=== PATIENT | female | born 1960 | race Caucasian/White ===

== ENCOUNTER 2018-10-28 11:26 | Inpatient (IN) | payer MEDICARE, OTHER ==
[2018-10-28] MEDS ORDERED: SODIUM CHLORIDE 0.9% 1,000 ML with MVI, ADULT NO.4 WITH VIT K 10 ML, THIAMINE 100 MG, F... IV ONE ×4 (11:48)
[2018-10-28] MEDS ORDERED: SODIUM CHLORIDE 0.9% 1,000 ML IV ONE (11:48)
--- NOTE | 2018-10-28 12:03 | ED ---
General Adult HPI - General Chief complaint: Alcohol Stated complaint: Alcohol Time Seen by Provider: 10/28/18 11:30 Source: EMS, RN notes reviewed Mode of arrival: EMS - History of Present Illness Initial comments: This is a 58-year-old female who presents emergency Department intoxicated. Patient states her and her boyfriend were both drinking heavily went to [facility] to go through rehab however they drove there are intoxicated and [facility] sent him to the emergency department because he could not get a ride home and they could not admit him. Patient denies any complaints currently she denies headache she denies lightheadedness denies any chest pain difficulty breathing shortness of breath. Patient denies abdominal pain patient denies nausea vomiting diarrhea per patient denies any drug use. Patient states she drank heavily this morning and they just wanted go through rehabilitation. Patient denies any trauma. Patient doesn't really want to be here should rather be in rehab. - Related Data Home Medications Medication Instructions Recorded Confirmed Albuterol Inhaler [Ventolin Hfa 1 - 2 puff INHALATION RT-Q6H PRN 10/28/18 10/28/18 Inhaler] Alendronate Sodium [Fosamax] 70 mg PO Q7D 10/28/18 10/28/18 Buprenorphine HCl/Naloxone HCl 1 film SL BID 10/28/18 10/28/18 [Suboxone 8 mg-2 mg Sl Film] Diazepam [Valium] 5 mg PO QID PRN 10/28/18 10/28/18 Gabapentin [Neurontin] 300 mg PO BID 10/28/18 10/28/18 LORazepam [Ativan] 1 mg PO QID PRN 10/28/18 10/28/18 Allergies Allergy/AdvReac Type Severity Reaction Status Date / Time No Known Allergies Allergy Verified 10/28/18 12:49 Review of Systems ROS Statement: Those systems with pertinent positive or pertinent negative responses have been documented in the HPI. ROS Other: All systems not noted in ROS Statement are negative. Past Medical History Past Medical History: COPD History of Any Multi-Drug Resistant Organisms: None Reported Past Psychological History: Bipolar Smoking Status: Current every day smoker Past Alcohol Use History: Abuse General Exam - General Exam Comments Initial Comments: GENERAL: Patient is well-developed and well-nourished. Patient is nontoxic and well- hydrated and appears significantly intoxicated ENT: Neck is soft and supple. No significant lymphadenopathy is noted. Oropharynx is clear. Moist mucous membranes. EYES: The sclera were anicteric and conjunctiva were pink and moist. Extraocular movements were intact and pupils were equal round and reactive to light. Eyelids were unremarkable. PULMONARY: Unlabored respirations. Good breath sounds bilaterally. No audible rales rhonchi or wheezing was noted. CARDIOVASCULAR: There is a regular rate and rhythm without any murmurs gallops or rubs. ABDOMEN: Soft and nontender with normal bowel sounds. SKIN: Skin is clear with no lesions or rashes and otherwise unremarkable. NEUROLOGIC: Patient is alert and oriented x3. Cranial nerves II through XII are grossly intact. Motor and sensory are also intact. Normal speech, volume and content. Symmetrical smile. MUSCULOSKELETAL: Normal extremities with adequate strength and full range of motion. LYMPHATICS: No significant lymphadenopathy is noted PSYCHIATRIC: Normal psychiatric evaluation. Course Vital Signs 10/28/18 11:28 Temperature 97.6 F Pulse Rate 100 Respiratory 18 Rate Blood Pressure 107/79 O2 Sat by Pulse 92 L Oximetry Medical Decision Making - Medical Decision Making I spoke with Dr. Arnett he agreed to admit the patient admitted the patient wrote admitting orders. - Lab Data Result diagrams: 10/28/18 12:03 10/28/18 12:03 Lab Results 10/28/18 10/28/18 10/28/18 Range/Units 12:03 12:03 12:03 WBC 7.7 (3.8-10.6) k/uL RBC 5.01 (3.80-5.40) m/uL Hgb 12.3 (11.4-16.0) gm/dL Hct 39.0 (34.0-46.0) % MCV 77.9 L (80.0-100.0) fL MCH 24.5 L (25.0-35.0) pg MCHC 31.4 (31.0-37.0) g/dL RDW 17.0 H (11.5-15.5) % Plt Count 508 H (150-450) k/uL Neutrophils % 53 % Lymphocytes % 37 % Monocytes % 4 % Eosinophils % 3 % Basophils % 1 % Neutrophils # 4.1 (1.3-7.7) k/uL Lymphocytes # 2.8 (1.0-4.8) k/uL Monocytes # 0.3 (0-1.0) k/uL Eosinophils # 0.2 (0-0.7) k/uL Basophils # 0.1 (0-0.2) k/uL Hypochromasia Moderate Anisocytosis Slight Microcytosis Slight PT 9.9 (9.0-12.0) sec INR 0.9 (<1.2) APTT 25.0 (22.0-30.0) sec Sodium 145 (137-145) mmol/L Potassium 4.5 (3.5-5.1) mmol/L Chloride 108 H (98-107) mmol/L Carbon Dioxide 26 (22-30) mmol/L Anion Gap 11 mmol/L BUN 3 L (7-17) mg/dL Creatinine 0.39 L (0.52-1.04) mg/dL Est GFR (CKD-EPI)AfAm >90 (>60 ml/min/1.73 sqM) Est GFR (CKD-EPI)NonAf >90 (>60 ml/min/1.73 sqM) Glucose 96 (74-99) mg/dL Calcium 9.1 (8.4-10.2) mg/dL Magnesium 2.1 (1.6-2.3) mg/dL Total Bilirubin 0.2 (0.2-1.3) mg/dL AST 37 H (14-36) U/L ALT 30 (9-52) U/L Alkaline Phosphatase 145 H (38-126) U/L Total Protein 8.4 H (6.3-8.2) g/dL Albumin 4.2 (3.5-5.0) g/dL Serum Alcohol 285 H* mg/dL Disposition Clinical Impression: Alcoholic intoxication Disposition: ADMITTED IP TO THIS HOSP Referrals: Elvis Castillo DO [Primary Care Provider] - 1-2 days Time of Disposition: 14:48
[2018-10-28 12:36] LABS: Anisocytosis Slight; Basophils # (A) 0.1 k/uL (0-0.2); Basophils % (A) 1 %; Eosinophils # (A) 0.2 k/uL (0-0.7); Eosinophils % (A) 3 %; HGB 12.3 gm/dL (11.4-16.0); Hypochromasia Moderate; Lymphocytes # (A) 2.8 k/uL (1.0-4.8); Lymphocytes % (A) 37 %; MCH 24.5 pg (25.0-35.0); MCHC 31.4 g/dL (31.0-37.0); MCV 77.9 fL (80.0-100.0); Mean Platelet Volume 6.6; Microcytosis Slight; Monocytes # (A) 0.3 k/uL (0-1.0); Monocytes % (A) 4 %; Neutrophils # (A) 4.1 k/uL (1.3-7.7); Neutrophils % (A) 53 %; Platelet Count 508 k/uL (150-450); RBC 5.01 m/uL (3.80-5.40); WBC 7.7 k/uL (3.8-10.6)
[2018-10-28 12:40] LABS: INR 0.9 (<1.2); Prothrombin Time 9.9 sec (9.0-12.0)
[2018-10-28 12:47] LABS: ALT 30 U/L (9-52); AST 37 U/L (14-36); African American GFR (CKD) >90 (>60 ml/min/1.73 sqM); Albumin 4.2 g/dL (3.5-5.0); Alkaline Phosphatase 145 U/L (38-126); Anion Gap 11 mmol/L; Blood Urea Nitrogen 3 mg/dL (7-17); Calcium 9.1 mg/dL (8.4-10.2); Carbon Dioxide 26 mmol/L (22-30); Chloride 108 mmol/L (98-107); Glucose 96 mg/dL (74-99); Magnesium 2.1 mg/dL (1.6-2.3); Potassium 4.5 mmol/L (3.5-5.1); Sodium 145 mmol/L (137-145); Total Bilirubin 0.2 mg/dL (0.2-1.3); Total Protein 8.4 g/dL (6.3-8.2)
[2018-10-28 13:01] LABS: Alcohol 285 mg/dL
[2018-10-28] MEDS ORDERED: LORazepam 2 MG/ML INJ IV PRN (14:50)
[2018-10-28] MEDS ORDERED: THIAMINE 100 MG/ML 2 ML VIAL IM STA (14:50)
[2018-10-28] MEDS: LORazepam 2 MG/ML INJ IV PRN ×3 (16:15→22:51)
[2018-10-28] MEDS ORDERED: TEMAZEPAM 15 MG CAP PO PRN (16:27)
[2018-10-28] MEDS ORDERED: ALPRAZolam 0.25 MG TAB PO PRN (16:27)
[2018-10-28] MEDS ORDERED: HYDROcodone/APAP 5-325MG 1 EACH TAB PO PRN (16:27)
--- NOTE | 2018-10-28 16:49 | XR ---
EXAMINATION TYPE: XR chest 1V portable DATE OF EXAM: 10/28/2018 COMPARISON: NONE HISTORY: Intoxication. Short of breath TECHNIQUE: Single frontal view of the chest is obtained. FINDINGS: There is general coarse interstitial pulmonary density. Heart size is normal. There is sli ght blunting of the right costophrenic angle. Bony thorax appears intact. IMPRESSION: Pulmonary interstitial fibrosis. Acute interstitial pneumonia is possible. No heart fail ure.
[2018-10-28] MEDS ORDERED: IPRATROPIUM-ALBUTEROL 3 ML NEB INHALATION PRN (18:55)
[2018-10-28] MEDS ORDERED: FUROSEMIDE 10 MG/ML 4 ML VIAL IV STA (18:56)
[2018-10-28 19:13] LABS: Appearance,Urine Cloudy (Clear); Bacteria,Urine Occasional /hpf; Bilirubin,Urine Negative (Negative); Blood,Urine Negative (Negative); Color,Urine Light Yellow; Glucose,Urine (UA) Negative (Negative); Ketones,Urine Negative (Negative); Leukocyte Esterase,Urine Negative (Negative); Mucus,Urine Rare /hpf; Nitrite,Urine Negative (Negative); PH, Urine 5.5 (5.0-8.0); Protein,Urine Negative (Negative); Specific Gravity,Urine 1.009 (1.001-1.035); Squamous Epithelial Cell,Urine 4 /hpf (0-4); Urobilinogen,Urine <2.0 mg/dL (<2.0); WBC,Urine 1 /hpf (0-5)
[2018-10-28] MEDS ORDERED: ONDANSETRON 4 MG/2 ML VIAL IVP PRN (19:18)
[2018-10-28] MEDS ORDERED: AZITHROMYCIN 500 MG in SODIUM CHLORIDE 0.9% 250 ML IVPB SCH (19:30)
[2018-10-28] MEDS: 0.9% NACL WITH KCL 20 MEQ/L 1,000 ML with MVI, ADULT NO.4 WITH VIT K 10 ML, THIAMINE 10... IV SCH ×4 (19:42)
[2018-10-28] MEDS: THIAMINE 100 MG TAB PO SCH (19:58)
[2018-10-28] MEDS: methylPREDNISolone SOD SUCCI 125 MG/2 ML VIAL IV SCH (20:54)
[2018-10-28] MEDS: NICOTINE 14MG/24HR PATCH TRANSDERM SCH (20:55)
--- NOTE | 2018-10-28 20:55 | HP ---
HISTORY AND PHYSICAL DATE OF SERVICE: 10/28/2018 CHIEF COMPLAINT: Alcohol intoxication. HISTORY OF PRESENT ILLNESS: This 58-year-old woman with a past medical history of multiple medical problems, including COPD, history of bipolar, being followed by Dr. Elvis Castillo in the outpatient setting, apparently drove with her friend to [facility] in the belief that they would be able to be admitted; however, [facility] declined and the patient was taken to [facility] and admitted for further evaluation and treatment. Alcohol level was found to be 285. The patient had significant shortness of breath which was increasing in intensity. Patient was admitted for further evaluation. There is no history of any fever, rigor or chills. No history of headache, loss of consciousness, seizures. PAST MEDICAL HISTORY: 1. History of COPD. 2. History of bipolar. 3. Nicotine dependence. MEDICATIONS: Medications prior to admission include: 1. Ativan 1 mg q.i.d. p.r.n. 2. Neurontin 300 mg p.o. b.i.d. 3. Valium 5 mg q.i.d. p.r.n. 4. Suboxone 8 mg b.i.d. 5. Fosamax 70 mg q.7 days. 6. Ventolin HFA 1-2 puffs q.6 p.r.n. ALLERGIES: NONE. FAMILY HISTORY: No history of heart disease or strokes in the family. SOCIAL HISTORY: History of smoking and alcohol abuse. REVIEW OF SYSTEMS: ENT: No diminished hearing. No diminished vision. CARDIOVASCULAR SYSTEM: No angina, palpitations. RESPIRATORY SYSTEM: As mentioned earlier. GI: No nausea, vomiting. : No dysuria or retention. NERVOUS SYSTEM: Some tremors present. ALLERGY/IMMUNOLOGY: No asthma, hayfever. MUSCULOSKELETAL: As mentioned earlier. HEMATOLOGY/ONCOLOGY: No history of anemia. ENDOCRINE: No history of diabetes, hypothyroidism. CONSTITUTIONAL: As mentioned earlier. DERMATOLOGY: Negative. RHEUMATOLOGY: Negative. PSYCHIATRY: As mentioned earlier. PHYSICAL EXAMINATION: Patient alert and oriented x3. Pulse 112, regular. Blood pressure 119/74, respiration 20, temperature 97.6, pulse ox 92% on room air. HEENT: Conjunctivae normal. Oral mucosa moist. NECK: No jugular venous distention. No carotid bruit. No lymph node enlargement. CARDIOVASCULAR SYSTEM: S1, S2 muffled. No S3. No S4. RESPIRATORY SYSTEM: Breath sounds diminished at the bases. Bilateral scattered rhonchi and crackles. Expiratory wheezing also present, but breathing efforts are markedly increased. ABDOMEN: Soft, non-tender. No mass palpable. LEGS: No edema. No swelling. NERVOUS SYSTEM: Higher functions as mentioned earlier. Moves all 4 limbs. No focal motor or sensory deficit. LYMPHATICS: No lymph node palpable in neck, axillae or groin. SKIN: No ulcer, rash, bleeding. JOINTS: No active deforming arthropathy. LABS: Labs at this time show WBC 7.7, hemoglobin 12.3, platelets 508 and creatinine 0.39. Alkaline phosphatase is 145. AST is 37. ASSESSMENT: 1. Acute alcohol intoxication. 2. Possible interstitial pneumonia. 3. Chronic obstructive pulmonary disease, acute exacerbation, with acute purulent tracheobronchitis. 4. Sinus tachycardia secondary to delirium tremens. 5. Acute delirium tremens and alcohol withdrawal. 6. Increased AST; possible mild hepatitis secondary to alcohol. 7. History of chronic obstructive pulmonary disease. 8. History of bipolar. 9. History of continued and ongoing nicotine dependence. 10.History of ethanol. RECOMMENDATIONS AND DISCUSSION: In this 58-year-old woman who presented with multiple complex medical issues, we will monitor the patient closely. I would recommend continuing with current medications. Chest x-ray was done in the ER which I reviewed personally; it showed bilateral infiltrates, possible interstitial pneumonia. I would recommend stopping the IV fluids. I would also recommend broad-spectrum IV antibiotics. Social Work will be consulted as well as Case Management to coordinate discharge to [facility] once the patient is clinically better. However, currently the prognosis is extremely guarded because of multiple life-threatening complex medical issues, as listed above. Further recommendations to follow. MMODL / IJN: [id number] /
[2018-10-28] MEDS: IPRATROPIUM-ALBUTEROL 3 ML NEB INHALATION SCH (21:34)
[2018-10-28] MEDS: BUDESONIDE 1 MG/2 ML NEBU INHALATION SCH (21:34)
[2018-10-28] MEDS: FORMOTEROL FUMARATE 20 MCG/2 ML NEBU INHALATION SCH (21:35)
[2018-10-28 21:39] LABS: Amphetamine Screen,Urine Not Detected (NotDetected); Barbiturate Screen,Urine Not Detected (NotDetected); Benzodiazepines Screen,Urine Detected (NotDetected); Cocaine Screen,Urine Not Detected (NotDetected); Methadone Screen, Urine Not Detected (NotDetected); Opiate Screen,Urine Not Detected (NotDetected); Oxycodone Screen, Urine Not Detected (NotDetected); Phencyclidine Screen,Urine Not Detected (NotDetected); Tricyclic Antidepressant,Urine Not Detected (NotDetected); Urn Cannabinoid Scrn Not Detected (NotDetected)
[2018-10-28 22:28] LABS: Glucose,Whole Blood 131 mg/dL (75-99)
[2018-10-28] MEDS: INSULIN ASPART (NovoLOG) 100 UNIT/ML VIAL SQ SCH (22:45)
[2018-10-28] MEDS: GABAPENTIN 300 MG CAP PO SCH (22:50)
[2018-10-28] MEDS: HEPARIN SODIUM,PORCINE 5,000 UNIT/ML 1 ML VIAL SQ SCH (22:50)
[2018-10-29] MEDS: methylPREDNISolone SOD SUCCI 125 MG/2 ML VIAL IV SCH ×4 (00:45→18:17)
[2018-10-29] MEDS: 0.9% NACL WITH KCL 20 MEQ/L 1,000 ML with MVI, ADULT NO.4 WITH VIT K 10 ML, THIAMINE 10... IV SCH ×4 (00:46)
[2018-10-29 06:57] LABS: Glucose,Whole Blood 154 mg/dL (75-99)
[2018-10-29 07:15] LABS: Anisocytosis Slight; Basophils % (A) 0 %; Eosinophils # (A) 0.1 k/uL (0-0.7); Eosinophils % (A) 1 %; HCT 37.9 % (34.0-46.0); HGB 11.8 gm/dL (11.4-16.0); Hypochromasia Moderate; Lymphocytes # (A) 0.9 k/uL (1.0-4.8); Lymphocytes % (A) 12 %; MCH 24.6 pg (25.0-35.0); MCHC 31.1 g/dL (31.0-37.0); MCV 79.1 fL (80.0-100.0); Mean Platelet Volume 6.7; Monocytes # (A) 0.1 k/uL (0-1.0); Monocytes % (A) 1 %; Neutrophils # (A) 6.6 k/uL (1.3-7.7); Neutrophils % (A) 86 %; Platelet Count 506 k/uL (150-450); RBC 4.79 m/uL (3.80-5.40); RDW 16.7 % (11.5-15.5); WBC 7.7 k/uL (3.8-10.6)
[2018-10-29 07:33] LABS: African American GFR (CKD) >90 (>60 ml/min/1.73 sqM); Anion Gap 10 mmol/L; Blood Urea Nitrogen 7 mg/dL (7-17); Calcium 8.3 mg/dL (8.4-10.2); Carbon Dioxide 30 mmol/L (22-30); Chloride 100 mmol/L (98-107); Glucose 149 mg/dL (74-99); Potassium 4.6 mmol/L (3.5-5.1); Sodium 140 mmol/L (137-145)
[2018-10-29] MEDS: INSULIN ASPART (NovoLOG) 100 UNIT/ML VIAL SQ SCH ×4 (08:00→22:19)
[2018-10-29] MEDS: THIAMINE 100 MG TAB PO SCH ×2 (08:01→18:18)
[2018-10-29] MEDS: GABAPENTIN 300 MG CAP PO SCH ×2 (08:01→22:19)
[2018-10-29] MEDS: PANTOPRAZOLE 40 MG TABLET PO SCH (08:02)
[2018-10-29] MEDS: LORazepam 2 MG/ML INJ IV PRN ×3 (08:02→22:20)
[2018-10-29] MEDS: HEPARIN SODIUM,PORCINE 5,000 UNIT/ML 1 ML VIAL SQ SCH ×2 (08:02→22:19)
[2018-10-29] MEDS: NICOTINE 14MG/24HR PATCH TRANSDERM SCH (08:09)
--- NOTE | 2018-10-29 08:23 | XR ---
EXAMINATION TYPE: XR chest 1V portable DATE OF EXAM: 10/29/2018 COMPARISON: 10/28/2018 HISTORY: Pneumonia TECHNIQUE: Single frontal view of the chest is obtained. FINDINGS: Persistent interstitial changes are seen. Chronic rib cage deformities are seen with no pl eural effusion or pneumothorax. Biapical pleural thickening. Heart size normal. IMPRESSION: Persistent interstitial changes suggestive of chronic interstitial pulmonary fibrosis. S uperimposed congestion or pneumonitis not excluded.
[2018-10-29] MEDS: FORMOTEROL FUMARATE 20 MCG/2 ML NEBU INHALATION SCH ×2 (08:38→18:56)
[2018-10-29] MEDS: BUDESONIDE 1 MG/2 ML NEBU INHALATION SCH ×2 (08:38→18:56)
[2018-10-29] MEDS: IPRATROPIUM-ALBUTEROL 3 ML NEB INHALATION SCH ×4 (08:38→18:56)
[2018-10-29 11:42] LABS: Glucose,Whole Blood 136 mg/dL (75-99)
[2018-10-29] MEDS ORDERED: FUROSEMIDE 10 MG/ML 2 ML VIAL IV ONE (12:40)
--- NOTE | 2018-10-29 13:33 | P.CNPUL ---
History of Present Illness Consult date: 10/29/18 Requesting physician: Trery Cerrato Reason for consult: dyspnea Chief complaint: shortness of breath, wheezing History of present illness: This is 58-year-old white female patient who lives in [facility], has a history of heavy alcohol abuse, chronic nicotine dependence, presented to the em ergency department intoxicated. Apparently patient and her boyfriend were on their way to [facility] to be admitted, however they showed up there quite intoxicated and the [facility] rehab could not admit him and they were directed to the emergency department. Patient has been drinking since the age of 13, she states she drinks quite heavily, usually 2 pints of schnapps or vodka and beer, has history of alcohol withdrawal, with delirium tremens. Does have underlying history of COPD, not usually oxygen dependent, she is on a combination of Symbicort, and Ventolin. Her sleep department patient denied any headaches, lightheadedness, no chest pain, no fever or chills, no abdominal pain, no nausea vomiting or diarrhea. Urine drug screen detected benzodiazepines, and serum alcohol level was 285, she was started on COPD protocol for precaution of delirium tremens. Physical exam revealed significant wheezing. Chest x-ray showed pulmonary interstitial fibrosis, with the possibility of acute interstitial pneumonia. Clinically patient is nontoxic, no fever or chills, no leukocytosis. She has been started on a combination of Rocephin and Zithromax, nebulized bronchodilators, she was given a dose of IV Lasix and started on nebulized bronchodilators along with IV steroids. Today were seen this patient in consultation for acute COPD exacerbation, with changes of chronic fibrosis on the chest x-ray, doubt acute pneumonia, her BNP was within normal limits at 62. Review of Systems All systems: negative Constitutional: Denies chills, Denies fever Eyes: denies blurred vision, denies pain Ears, nose, mouth and throat: Denies headache, Denies sore throat Cardiovascular: Denies chest pain, Denies shortness of breath Respiratory: Reports wheezing, Denies cough Gastrointestinal: Denies abdominal pain, Denies diarrhea, Denies nausea, Denies vomiting Genitourinary: Denies dysuria, Denies hematuria Musculoskeletal: Denies myalgias Integumentary: Denies pruritus, Denies rash Neurological: Reports headaches, Denies numbness, Denies weakness Psychiatric: Denies anxiety, Denies depression Endocrine: Denies fatigue, Denies weight change Past Medical History Past Medical History: COPD History of Any Multi-Drug Resistant Organisms: None Reported Past Psychological History: Bipolar Smoking Status: Current every day smoker Past Alcohol Use History: Abuse Medications and Allergies Home Medications Medication Instructions Recorded Confirmed Type Albuterol Inhaler [Ventolin Hfa 1 - 2 puff INHALATION RT-Q6H PRN 10/28/18 10/28/18 History Inhaler] Alendronate Sodium [Fosamax] 70 mg PO Q7D 10/28/18 10/28/18 History Buprenorphine HCl/Naloxone HCl 1 film SL BID 10/28/18 10/28/18 History [Suboxone 8 mg-2 mg Sl Film] Diazepam [Valium] 5 mg PO QID PRN 10/28/18 10/28/18 History Gabapentin [Neurontin] 300 mg PO BID 10/28/18 10/28/18 History LORazepam [Ativan] 1 mg PO QID PRN 10/28/18 10/28/18 History Allergies Allergy/AdvReac Type Severity Reaction Status Date / Time No Known Allergies Allergy Verified 10/28/18 21:07 Physical Exam Vitals: Vital Signs Temp Pulse Pulse Resp BP BP Pulse Ox 10/29/18 11:40 109 H 10/29/18 11:39 108 H 10/29/18 09:01 106 H 10/29/18 08:49 104 H 10/29/18 08:48 104 H 10/29/18 08:38 104 H 10/29/18 07:00 98 F 106 H 16 119/78 95 10/29/18 04:05 100 10/29/18 00:59 98.6 F 110 H 16 127/85 94 L 10/29/18 00:00 115 H 16 10/28/18 21:54 121 H 10/28/18 21:48 123 H 10/28/18 21:37 94 L 10/28/18 21:36 123 H 10/28/18 21:00 98.5 F 126 H 20 138/81 90 L 10/28/18 20:40 126 H 10/28/18 17:25 99.0 F 112 H 22 110/73 92 L 10/28/18 16:10 112 H 20 119/74 92 L Intake and Output 10/28/18 10/29/18 10/29/18 22:59 06:59 14:59 Intake Total 1750 Balance 1750 Intake: Intake, IV Titration 1350 Amount 0.9% NaCl with KCl 20 Meq 250 /l 1,000 ml @ 40 mls/hr IV .Q24H ELVA with Mvi, Adult No.4 with Vit K 10 ml with Thiamine 100 mg with Folic Acid 1 mg Rx#: [id number] Azithromycin 500 mg In 250 Sodium Chloride 0.9% 250 ml @ 250 mls/hr IVPB DAILY@1800 ELVA Rx#: [id number] Sodium Chloride 0.9% 1, 800 000 ml @ 150 mls/hr IV . Q6H45M ONE with Mvi, Adult No.4 with Vit K 10 ml with Thiamine 100 mg with Folic Acid 1 mg Rx#: [id number] cefTRIAXone 1 gm In 50 Sodium Chloride 0.9% 50 ml @ 100 mls/hr IVPB Q24HR ELVA Rx#:[id number] Oral 400 Other: Voiding Method Toilet # Voids 1 4 GENERAL EXAM: Alert, very pleasant, 58-year-old white female patient, in no acute distress, audibly wheezy, comfortable in no apparent distress. Complaining of mild headache HEAD: Normocephalic/atraumatic. EYES: Normal reaction of pupils, equal size. Conjunctiva pink, sclera white. NOSE: Clear with pink turbinates. THROAT: No erythema or exudates. NECK: No masses, no JVD, no thyroid enlargement, no adenopathy. CHEST: No chest wall deformity. Symmetrical expansion. LUNGS: Equal air entry with no crackles, wheeze, rhonchi or dullness. CVS: Regular rate and rhythm, normal S1 and S2, no gallops, no murmurs, no rubs ABDOMEN: Soft, nontender. No hepatosplenomegaly, normal bowel sounds, no guarding or rigidity. EXTREMITIES: No clubbing, no edema, no cyanosis, 2+ pulses and upper and lower extremities. She has fine tremors in her hands MUSCULOSKELETAL: Muscle strength and tone normal. SPINE: No scoliosis or deformity SKIN: No rashes CENTRAL NERVOUS SYSTEM: Alert and oriented -3. No focal deficits, tone is normal in all 4 extremities. PSYCHIATRIC: Alert and oriented -3. Appropriate affect. Intact judgment and insight. Results - Laboratory Findings CBC and BMP: 10/29/18 06:32 10/29/18 06:32 PT/INR, D-dimer PT 9.9 sec (9.0-12.0) 10/28/18 12:03 INR 0.9 (<1.2) 10/28/18 12:03 Abnormal lab findings: Abnormal Labs 10/28/18 10/28/18 10/28/18 12:03 12:03 18:55 MCV 77.9 L MCH 24.5 L RDW 17.0 H Plt Count 508 H Lymphocytes # Chloride 108 H BUN 3 L Creatinine 0.39 L Glucose POC Glucose (mg/dL) Calcium AST 37 H Alkaline Phosphatase 145 H Total Protein 8.4 H Urine Appearance Cloudy H Urine Bacteria Occasional H Urine Mucus Rare H U Benzodiazepines Scrn Serum Alcohol 285 H* 10/28/18 10/28/18 10/29/18 19:19 22:26 06:32 MCV 79.1 L MCH 24.6 L RDW 16.7 H Plt Count 506 H Lymphocytes # 0.9 L Chloride BUN Creatinine Glucose POC Glucose (mg/dL) 131 H Calcium AST Alkaline Phosphatase Total Protein Urine Appearance Urine Bacteria Urine Mucus U Benzodiazepines Scrn Detected H Serum Alcohol 10/29/18 10/29/18 10/29/18 06:32 06:55 11:40 MCV MCH RDW Plt Count Lymphocytes # Chloride BUN Creatinine 0.47 L Glucose 149 H POC Glucose (mg/dL) 154 H 136 H Calcium 8.3 L AST Alkaline Phosphatase Total Protein Urine Appearance Urine Bacteria Urine Mucus U Benzodiazepines Scrn Serum Alcohol - Diagnostic Findings Chest x-ray: report reviewed, image reviewed Assessment and Plan Plan: Assessment: #1. Acute exacerbation of chronic obstructive pulmonary disease, chest x-ray showing interstitial pulmonary densities, likely related to pulmonary interstitial fibrosis, doubt pneumonia #2. Acute alcoholic intoxication, with signs of mild withdrawal, CIWA protocol #3. Chronic alcoholism #4. Chronic obstructive pulmonary disease, severity is unknown, not oxygen dependent at baseline #5. Bipolar disorder #6. Chronic and ongoing nicotine dependence, patient carries a [id number] smoking history Plan: Continue nebulized bronchodilators, chest x-rays have been reviewed, showing interstitial pulmonary densities, possibly chronic in nature, no clear evidence of pneumonia. Continue on antibiotics, continue IV steroids and bronchodilators. Continue CIWA protocol, monitor for signs of delirium tremens, continue aspiration precautions. We'll continue to follow I performed a history & physical examination of the patient and discussed their management with my nurse practitioner, Lizz Kimball. I reviewed the nurse practitioner's note and agree with the documented findings and plan of care. Lung sounds are positive for diffuse wheezes throughout the lung riley. The findings and the impression was discussed with the patient. I attest to the documentation by the nurse practitioner. Time with Patient: Greater than 30
[2018-10-29 17:16] LABS: Glucose,Whole Blood 144 mg/dL (75-99)
--- NOTE | 2018-10-29 20:36 | PN ---
PROGRESS NOTE DATE OF SERVICE: 10/29/2018 CHIEF COMPLAINT: Alcohol intoxication. This 58-year-old woman was admitted with alcohol intoxication as well as COPD acute exacerbation, being closely monitored at this time. The patient had some evidence of fluid overload yesterday, but currently the most recent chest x-ray has improved significantly. Patient being closely monitored at this time. Pulmonary consultation also has been noted. Blood sugars mildly elevated. The patient also has significant history of alcohol and alcohol intoxication and delirium tremens also. PAST MEDICAL HISTORY: Reviewed. REVIEW OF SYSTEMS: Cardiovascular system: No angina. RESPIRATORY: As mentioned earlier. GI no nausea and no vomiting, diarrhea. no dysuria. NERVOUS SYSTEM: No numbness or weakness. CURRENT MEDICATIONS: Reviewed and include: 1. Bernice 5 mg q.6h p.r.n. 2. DuoNeb q.i.d. and p.r.n. 3. Xanax 0.25 t.i.d. 4. Zithromax 500 mg q.h.s. 5. Pulmicort 1 mg b.i.d. 6. Rocephin 1 g daily. 7. Perforomist 20 mcg b.i.d. 8. Neurontin 300 mg p.o. b.i.d. 9. Heparin 5000 subcu b.i.d. 10.NovoLog scale. 11.Ativan. 12.Solu-Medrol 60 IV q.6h. 13.Habitrol 14 daily. 14.Protonix. 15.Restoril. 16.Vitamin B1. PHYSICAL EXAM: Patient is alert, oriented x3. Pulse 69. Blood pressure 119/78. Respiration 16, temperature 98.8, pulse ox 94% on 3 L. HEENT: Conjunctivae normal. NECK: No jugular venous distention. CARDIOVASCULAR: S1, S2 muffled. RESPIRATIONS: Breath sounds diminished in the bases. Bilateral scattered rhonchi and crackles. Expiratory wheezing also present. Patient is still short of breath. ABDOMEN: Soft, nontender. No mass palpable. LEGS: No edema. No swelling. NERVOUS SYSTEM: Mild diffuse weakness. SKIN: No ulcer, no rash. No bleeding. LABS: WBC 7.2, hemoglobin 11.2. Sodium 140, potassium 4.6. Other labs are noted. ASSESSMENT: 1. Acute alcohol intoxication. 2. Chronic obstructive pulmonary disease acute exacerbation with acute purulent tracheobronchitis, interstitial pneumonia. 3. Sinus tachycardia secondary to acute delirium tremens and alcohol withdrawal. 4. Increased AST. Possible acute mild hepatitis secondary to alcohol. 5. History of chronic obstructive pulmonary disease. 6. History of bipolar. 7. History of continued ongoing nicotine dependence. 8. History of EtOH. RECOMMENDATIONS AND DISCUSSION: This 58-year-old woman who presented with multiple complex medical issues, at this time, I recommend to continue current management and continue the bronchodilators. Continue with antibiotics. Otherwise, DVT prophylaxis. WA protocol. Closely follow with multiple consultants including pulmonology otherwise, banana bag and continue to monitor. Further recommendations to follow. MMODL / IJN: [id number] /
[2018-10-29] MEDS ORDERED: AZITHROMYCIN 500 MG TAB PO SCH (21:00)
[2018-10-29 21:49] LABS: Glucose,Whole Blood 144 mg/dL (75-99)
[2018-10-30 01:31] VITALS: RESP 14
[2018-10-30] MEDS: methylPREDNISolone SOD SUCCI 125 MG/2 ML VIAL IV SCH ×3 (01:44→12:21)
[2018-10-30] MEDS: IPRATROPIUM-ALBUTEROL 3 ML NEB INHALATION SCH ×2 (07:08→10:51)
[2018-10-30] MEDS: BUDESONIDE 1 MG/2 ML NEBU INHALATION SCH (07:08)
[2018-10-30] MEDS: FORMOTEROL FUMARATE 20 MCG/2 ML NEBU INHALATION SCH (07:09)
[2018-10-30 07:22] LABS: Glucose,Whole Blood 150 mg/dL (75-99)
[2018-10-30] MEDS: INSULIN ASPART (NovoLOG) 100 UNIT/ML VIAL SQ SCH ×2 (07:36→12:17)
[2018-10-30] MEDS: HEPARIN SODIUM,PORCINE 5,000 UNIT/ML 1 ML VIAL SQ SCH (07:36)
[2018-10-30] MEDS: NICOTINE 14MG/24HR PATCH TRANSDERM SCH (07:36)
[2018-10-30] MEDS: THIAMINE 100 MG TAB PO SCH (07:36)
[2018-10-30] MEDS: GABAPENTIN 300 MG CAP PO SCH (07:36)
[2018-10-30] MEDS: PANTOPRAZOLE 40 MG TABLET PO SCH (07:36)
[2018-10-30] MEDS: LORazepam 2 MG/ML INJ IV PRN ×2 (08:04→12:22)
[2018-10-30 08:11] VITALS: BP 119/72; TEMP 98.5
[2018-10-30 09:32] LABS: African American GFR (CKD) >90 (>60 ml/min/1.73 sqM); Anion Gap 11 mmol/L; Blood Urea Nitrogen 10 mg/dL (7-17); Calcium 8.6 mg/dL (8.4-10.2); Carbon Dioxide 24 mmol/L (22-30); Chloride 98 mmol/L (98-107); Glucose 220 mg/dL (74-99); Potassium 4.6 mmol/L (3.5-5.1); Sodium 133 mmol/L (137-145)
[2018-10-30 10:04] LABS: Anisocytosis Slight; Basophils % (A) 0 %; Eosinophils # (A) 0.1 k/uL (0-0.7); Eosinophils % (A) 2 %; HCT 34.6 % (34.0-46.0); HGB 10.7 gm/dL (11.4-16.0); Hypochromasia Moderate; Lymphocytes # (A) 0.6 k/uL (1.0-4.8); Lymphocytes % (A) 15 %; MCH 24.3 pg (25.0-35.0); MCHC 30.8 g/dL (31.0-37.0); MCV 78.7 fL (80.0-100.0); Mean Platelet Volume 7.6; Monocytes # (A) 0.1 k/uL (0-1.0); Monocytes % (A) 1 %; Neutrophils # (A) 3.2 k/uL (1.3-7.7); Neutrophils % (A) 82 %; Platelet Count 461 k/uL (150-450); RBC 4.39 m/uL (3.80-5.40); RDW 16.4 % (11.5-15.5)
[2018-10-30 11:11] VITALS: PULSE 96
[2018-10-30 12:01] LABS: Glucose,Whole Blood 132 mg/dL (75-99)
--- NOTE | 2018-10-30 12:14 | P.PN ---
Subjective Progress Note Date: 10/30/18 Principal diagnosis: Acute exacerbation of chronic obstructive pulmonary disease This is 58-year-old white female patient who lives in [facility], has a history of heavy alcohol abuse, chronic nicotine dependence, presented to the emergency department intoxicated. Apparently patient and her boyfriend were on their way to [facility] to be admitted, however they showed up there quite intoxicated and the [facility] could not admit him and they were directed to the emergency department. Patient has been drinking since the age of 13, she states she drinks quite heavily, usually 2 pints of schnapps or vodka and beer, has history of alcohol withdrawal, with delirium tremens. Does have underlying history of COPD, not usually oxygen dependent, she is on a co mbination of Symbicort, and Ventolin. Her sleep department patient denied any headaches, lightheadedness, no chest pain, no fever or chills, no abdominal pain, no nausea vomiting or diarrhea. Urine drug screen detected benzodiazepines, and serum alcohol level was 285, she was started on COPD omid col for precaution of delirium tremens. Physical exam revealed significant wheezing. Chest x-ray showed pulmonary interstitial fibrosis, with the possibility of acute interstitial pneumonia. Clinically patient is nontoxic, no fever or chills, no leukocytosis. She has been started on a combination of Rocephin and Zithromax, nebulized bronchodilators, she was given a dose of IV Lasix and started on nebulized bronchodilators along with IV steroids. Today were seen this patient in consultation for acute COPD exacerbation, with changes of chronic fibrosis on the chest x-ray, doubt acute pneumonia, her BNP was within normal limits at 62. The patient is seen today 10/30/2018 in follow-up on the regular medical floor. She is awake and alert in no acute distress. Breathing easier today as compared to yesterday. Maintaining O2 saturations in the low 90s on room air. She is a loose nonproductive cough. No chills or night sweats. She's afebrile. White count 4.0. Hemoglobin 10.7. Creatinine 0.46. He has been maintained on ceftriaxone, azithromycin, DuoNeb's, Pulmicort and Perforomist inhalations, IV Solu-Medrol. NicoDerm patch is in place. Objective - Vital Signs Vital signs: Vital Signs Temp 98.5 F 10/30/18 07:00 Pulse 96 10/30/18 11:04 Resp 14 10/30/18 07:00 BP 119/72 10/30/18 07:00 Pulse Ox 93 L 10/30/18 07:11 Intake & Output 10/29/18 10/30/18 10/30/18 18:59 06:59 18:59 Other: Voiding Method Toilet Toilet # Voids 2 1 - Exam GENERAL EXAM: Alert, pleasant 58 year female patient, active, comfortable in no apparent distress. On room air. HEAD: Normocephalic. EYES: Normal reaction of pupils, equal size. NOSE: Clear with pink turbinates. THROAT: No erythema or exudates. NECK: No masses, no JVD. CHEST: No chest wall deformity. LUNGS: Equal air entry with bilateral end expiratory wheeze, diminished. CVS: S1 and S2 normal with no audible murmur, regular rhythm. ABDOMEN: No hepatosplenomegaly, normal bowel sounds, no guarding or rigidity. SPINE: No scoliosis or deformity SKIN: No rashes CENTRAL NERVOUS SYSTEM: No focal deficits, tone is normal in all 4 extremities. EXTREMITIES: There is no peripheral edema. No clubbing, no cyanosis. Peripheral pulses are intact. - Labs CBC & Chem 7: 10/30/18 08:36 10/30/18 08:36 Labs: Abnormal Lab Results - Last 24 Hours (Table) 10/29/18 10/29/18 10/30/18 Range/Units 17:14 21:36 07:10 Hgb (11.4-16.0) gm/dL MCV (80.0-100.0) fL MCH (25.0-35.0) pg MCHC (31.0-37.0) g/dL RDW (11.5-15.5) % Plt Count (150-450) k/uL Lymphocytes # (1.0-4.8) k/uL Sodium (137-145) mmol/L Creatinine (0.52-1.04) mg/dL Glucose (74-99) mg/dL POC Glucose (mg/dL) 144 H 144 H 150 H (75-99) mg/dL 10/30/18 10/30/18 10/30/18 Range/Units 08:36 08:36 11:46 Hgb 10.7 L (11.4-16.0) gm/dL MCV 78.7 L (80.0-100.0) fL MCH 24.3 L (25.0-35.0) pg MCHC 30.8 L (31.0-37.0) g/dL RDW 16.4 H (11.5-15.5) % Plt Count 461 H (150-450) k/uL Lymphocytes # 0.6 L (1.0-4.8) k/uL Sodium 133 L (137-145) mmol/L Creatinine 0.46 L (0.52-1.04) mg/dL Glucose 220 H (74-99) mg/dL POC Glucose (mg/dL) 132 H (75-99) mg/dL Assessment and Plan Assessment: Assessment: #1. Acute exacerbation of chronic obstructive pulmonary disease, chest x-ray showing interstitial pulmonary densities, likely related to pulmonary interstitial fibrosis, doubt pneumonia #2. Acute alcoholic intoxication, with signs of mild withdrawal, [facility] protocol #3. Chronic alcoholism #4. Chronic obstructive pulmonary disease, severity is unknown, not oxygen dependent at baseline #5. Bipolar disorder #6. Chronic and ongoing nicotine dependence, patient carries a [id number] smoking history Plan: The patient was seen and evaluated by Dr. Haq. She is cleared for discharge from the pulmonary standpoint. She will need to continue on nebulized DuoNeb's 4 times a day when necessary, prednisone burst and taper starting at 40 mg daily 4, Symbicort. She is hoping to be admitted to [facility] for her alcoholism. She is from the [facility] and encouraged to follow-up with a sports book writer near her. She is educated regarding importance of complete smoking cessation. I, the cosigning physician, performed a history & physical examination of the patient. Lungs sounds with faint end expiratory wheeze bilaterally, diminished. Maintaining good O2 saturations in the 90s on room air. I discussed the assessment and plan of care with my nurse practitioner, Indu Jeffers. I attest to the above note as dictated by her.
[2018-10-30] MEDS: 0.9% NACL WITH KCL 20 MEQ/L 1,000 ML with MVI, ADULT NO.4 WITH VIT K 10 ML, THIAMINE 10... IV SCH ×4 (13:19)
--- NOTE | 2018-10-31 00:12 | P.DS ---
Providers Date of admission: 10/29/18 10:23 Expected date of discharge: 10/30/18 Attending physician: Terry Cerrato Consults: 10/28/18 18:55 Consult Physician Routine Consulting Provider: Ramin Haq Consult Reason/Comments: copd Do you want consulting provider notified?: Yes Primary care physician: Elvis Castillo DO Hospital Course: Final Diagnosis Acute alcohol intoxication chronic obstructive pulmonary disease, acute exacerbation with acute purulent tracheobronchitis, interstitial pneumonia sinus tachycardia secondary to acute delirium tremens and alcohol withdrawal Increased AST. Possible mild acute hepatitis secondary to alcohol History of COPD History of bipolar History of continued ongoing nicotine dependence History of ETOH Discharge disposition: Patient is being discharged in a stable condition with guarded prognosis to home. Patient will follow up in the outpatient setting with [facility] for alcohol rehab once accepted or bed is available. Total time taken is 35 minutes. History of present illness: This is a 58 year old female who was admitted for alcohol intoxication and also COPD exacerbation and was closely monitored. Patient was followed by pulmonary. Patient had marked improvement from yesterday and would like to go home. Patient was on the CIWA and hasn't needed any ativan today. Patient denies any tremors, nausea, dizziness, or headaches. Patient denies any chest pain, palpitations, or shortness of breath at this time. Patient has been tolerating diet and denies any nausea or vomiting. Patient has been receiving bronchodilators and steroids and will go home with a prednisone taper, symbicort, and duoneb treatments. A script was written for nebulizer. Case management was assisting. Patient condition is stable with much improvement. Patient will call [facility] upon discharge to discuss possible admission for alcohol rehab once a bed is available. On exam vital signs are stable. BP is 119/72 , pulse is 100, temp is 98.5F, resp are 14 , oxygen saturation is 93% on room air. Cardio S1 and S2 are muffled. Respiratory is diminished breath sounds at the bases with expiratory wheezing noted. Abdomen is soft and non-tender, and nervous system shows mild diffuse weakness. Please refer to medication reconciliation sheet for a list of medications. Patient Condition at Discharge: Fair Plan - Discharge Summary Discharge Rx Participant: Yes New Discharge Prescriptions: New Cefuroxime Axetil [Ceftin] 500 mg PO BID 3 Days #6 tab Ipratropium-Albuterol Nebulize [Duoneb 0.5 mg-3 mg/3 ml Soln] 3 ml INHALATION RT-QID 30 Days ampul.neb Ipratropium-Albuterol Nebulize [Duoneb 0.5 mg-3 mg/3 ml Soln] 3 ml INHALATION RT-QID PRN 30 Days ampul.neb PRN Reason: Shortness Of Breath Or Wheezing predniSONE 10 mg PO DIRECTED #30 tab Budesonide/Formoterol Fumarate [Symbicort 160-4.5 Mcg Inhaler] 1 puff IH BID #1 hfa.aer.ad Thiamine [Vitamin B-1] 100 mg PO BID-W/MEALS 30 Days #60 tab Folic Acid 1 mg PO DAILY #30 tablet Multivitamins, Thera [Multivitamin] 1 tab PO DAILY #30 tablet Continue LORazepam [Ativan] 1 mg PO QID PRN PRN Reason: Anxiety Gabapentin [Neurontin] 300 mg PO BID Diazepam [Valium] 5 mg PO QID PRN PRN Reason: Anxiety Buprenorphine HCl/Naloxone HCl [Suboxone 8 mg-2 mg Sl Film] 1 film SL BID Alendronate Sodium [Fosamax] 70 mg PO Q7D Albuterol Inhaler [Ventolin Hfa Inhaler] 1 - 2 puff INHALATION RT-Q6H PRN PRN Reason: Shortness Of Breath Discharge Medication List Albuterol Inhaler [Ventolin Hfa Inhaler] 1 - 2 puff INHALATION RT-Q6H PRN 10/28/18 [History] Alendronate Sodium [Fosamax] 70 mg PO Q7D 10/28/18 [History] Buprenorphine HCl/Naloxone HCl [Suboxone 8 mg-2 mg Sl Film] 1 film SL BID 10/28/18 [History] Diazepam [Valium] 5 mg PO QID PRN 10/28/18 [History] Gabapentin [Neurontin] 300 mg PO BID 10/28/18 [History] LORazepam [Ativan] 1 mg PO QID PRN 10/28/18 [History] Budesonide/Formoterol Fumarate [Symbicort 160-4.5 Mcg Inhaler] 1 puff IH BID #1 hfa.aer.ad 10/30/18 [Rx] Cefuroxime Axetil [Ceftin] 500 mg PO BID 3 Days #6 tab 10/30/18 [Rx] Folic Acid 1 mg PO DAILY #30 tablet 10/30/18 [Rx] Ipratropium-Albuterol Nebulize [Duoneb 0.5 mg-3 mg/3 ml Soln] 3 ml INHALATION RT-QID 30 Days ampul.neb 10/30/18 [Rx] Ipratropium-Albuterol Nebulize [Duoneb 0.5 mg-3 mg/3 ml Soln] 3 ml INHALATION RT-QID PRN 30 Days ampul.neb 10/30/18 [Rx] Multivitamins, Thera [Multivitamin] 1 tab PO DAILY #30 tablet 10/30/18 [Rx] Thiamine [Vitamin B-1] 100 mg PO BID-W/MEALS 30 Days #60 tab 10/30/18 [Rx] predniSONE 10 mg PO DIRECTED #30 tab 10/30/18 [Rx] Follow up Appointment(s)/Referral(s): Elvis Castillo DO [Primary Care Provider] - 1-2 days Patient Instructions/Handouts: COPD (Chronic Obstructive Pulmonary Disease) (DC) Activity/Diet/Wound Care/Special Instructions: Patient to call [facility] when discharged in order to determine if there is a bed available. #[phone]. Activity Limited until follow-up Continue current diet Avoid any alcohol intake Follow-up with primary care provider this week Discharge Disposition: HOME SELF-CARE
--- NOTE | 2018-10-31 09:05 | DS ---
DISCHARGE SUMMARY FINAL DIAGNOSES: 1. Acute alcohol intoxication, present on admission. 2. Chronic obstructive pulmonary disease acute exacerbation, acute purulent tracheobronchitis with interstitial pneumonia, possibly, improved. 3. Sinus tachycardia secondary to acute delirium tremens and as well as alcohol withdrawal. 4. Increased AST. Possible acute alcoholic hepatitis secondary to alcohol. 5. History of chronic obstructive pulmonary disease. 6. History of bipolar. 7. History of continued ongoing nicotine dependence. 8. History of EtOH. DISCHARGE DISPOSITION: The patient will be discharged in stable condition with guarded prognosis. HISTORY OF PRESENT ILLNESS: This 58-year-old woman with a past medical history of multiple medical problems was admitted with acute alcohol intoxication. Patient was trying to check in to [facility]. Treated with alcohol withdrawal protocol as well as empiric antibiotics and bronchodilators, steroids for COPD. The patient improved significantly. On exam, vitals are stable. Cardiovascular: S1, S2. Abdomen soft. Central nervous system: No focal deficits. Respiration: A few scattered rhonchi. Patient recommended follow up closely with primary physician, AA meetings, alcohol rehab. No alcohol. DISCHARGE ADVICE AND MEDICATIONS: 1. Discharge diet is cardiac diet. 2. Activity limited until followup. DISCHARGE MEDICATIONS: 1. Ativan 1 mg q.i.d. p.r.n. 2. Fosamax 70 mg Q 7. 3. Neurontin 300 mg t.i.d. 4. Suboxone 1 film b.i.d. 5. Valium 5 mg q.i.d. p.r.n. 6. Ventolin HFA 1-2 puffs q.6h p.r.n. 7. Ceftin 500 mg b.i.d. daily for 3 days. 8. DuoNeb q.i.d. and p.r.n. 9. Folic acid 1 mg daily. 10.Multivitamins one p.o. daily. 11.Prednisone 40 mg daily for 3 days, 30 for 3 days, 20 for 3 days, 10 for 3 days. 12.Symbicort 160/4.5 1 puff b.i.d. 13.Thiamine 100 mg p.o. b.i.d. Follow up with Dr. Elvis Castillo. Follow up with Pulmonary as recommended. Once again, patient will be discharged in stable condition with guarded prognosis. MMODL / IJN: [id number] /
--- NOTE | 2018-11-03 18:17 | CDI ---
Documentation Clarification Form Date: 11/03/18 From: Jovanna Chung Phone: If you have a question regarding this query, please contact Alisa Arriola at [phone] between 8am and 5pm. Admit Date: 10/29/2018 10:23:00 AM Patient Name: Alisa Jasso Visit Number: [id number] Discharge Date: 10/30/2018 2:37:00 PM ATTENTION: The Clinical Documentation Specialists (CDI) and [facility] Coding Staff appreciate your assistance in clarifying documentation. Please respond to the clarification below the line at the bottom and electronically sign. The CDI & [facility] Coding staff will review the response and follow-up if needed. Please note: Queries are made part of the Legal Health Record. If you have any questions, please contact the author of this message via ITS. Dr. Terry Cerrato Patient was admitted for alcohol intoxication. Documentation in your notes state alcohol abuse. Dr. Haq documented heavy alcohol abuse and alcoholism. History/Risk Factors: Drinks quite heavily, usually 2 pints of schnapps or vodka and beer. History of alcohol withdrawal and DTs. Clinical Indicators: Intoxication, acute delirium tremens, withdrawal Labs: Toxicology: Serum Alcohol 285 Treatment: [facility] protocol In your professional opinion, can you please clarify if the above clinical indicators and treatment signify any of the following? Alcohol dependence Alcohol abuse Other, please specify Unable to determine Alcohol dependence MTDD
== END 2018-10-30 14:37 | disposition home or self-care (01) | DRG 897 ==
LOC: EC 11:26 → 4SSUR 14:49 → OBSVTOIN 10-29 10:23
PROVIDERS: ADMIT Hospitalist; ATTEND Hospitalist
DX: F10.231 Alcohol dependence with withdrawal delirium (principal); J44.1 Chronic obstructive pulmonary disease with (acute) exacerbation; Y90.8 Blood alcohol level of 240 mg/100 ml or more; E87.70 Fluid overload, unspecified; F31.9 Bipolar disorder, unspecified; F17.210 Nicotine dependence, cigarettes, uncomplicated; J84.10 Pulmonary fibrosis, unspecified; K70.10 Alcoholic hepatitis without ascites; Z79.83 Long term (current) use of bisphosphonates; Z79.899 Other long term (current) drug therapy; Z79.891 Long term (current) use of opiate analgesic; Z79.51 Long term (current) use of inhaled steroids
CPT/HCPCS: 36415; 71045; 80048; 80053; 80306; 80320; 81001; 82075; 83735; 83880; 85025; 85610; 85730; 94640; 94760; 96365; 96366; 96372; 96375; 99285